=== PATIENT | female | born 1945 | race Native Hawaiian/Other Pacific Islander ===

== ENCOUNTER 2016-11-05 12:53 | Emergency (ER) | payer OTHER ==
[~2016-11-05] VITALS: Ht 165.1 cm; Wt 76.7 kg
[2016-11-05 13:05] VITALS: BP 158/89; TEMP 98.5
== END 2016-11-05 13:30 | disposition home or self-care (01) ==
LOC: ED 12:53
DX: J32.9 Chronic sinusitis, unspecified (principal); R51 Headache; J00 Acute nasopharyngitis [common cold]

== ENCOUNTER 2019-02-14 16:53 | Outpatient (CLI) | payer OTHER | END 2019-02-14 19:33 | disposition home or self-care (01) | LOC: RAD 16:53 | DX: M25.551 Pain in right hip (principal) ==